=== PATIENT | female | born 1970 | race Caucasian/White ===

== ENCOUNTER → 2021-08-31 | Outpatient (CLI) | payer MEDICAID ==
[~2021-08-31] MED LIST: CEFTIN 250250 MG/TAB PO; CEPHALEXIN; MOTRIN 800800 MG/TAB PO; OXYCODONE; STOOL SOFTENER100 MG PO
== END ==
LOC: COL.RAD 12:08
DX: G56.03 Carpal tunnel syndrome, bilateral upper limbs (principal); G52.2 Disorders of vagus nerve; M50.222 Other cervical disc displacement at C5-C6 level; M47.812 Spondylosis without myelopathy or radiculopathy, cervical region

== ENCOUNTER → 2022-01-13 | Outpatient (CLI) | payer MEDICAID | LOC: MHCPAIN 08:03 | DX: M47.812 Spondylosis without myelopathy or radiculopathy, cervical region (principal); M54.12 Radiculopathy, cervical region; M54.2 Cervicalgia; G89.29 Other chronic pain | CPT/HCPCS: G0463 ==

== ENCOUNTER → 2022-03-04 | Outpatient (CLI) | payer MEDICAID | LOC: MHCPAIN 01-28 13:59 | DX: M47.812 Spondylosis without myelopathy or radiculopathy, cervical region (principal); M54.12 Radiculopathy, cervical region | CPT/HCPCS: J1100; Q9967 ==

== ENCOUNTER → 2022-04-13 | Outpatient (CLI) | payer MEDICAID | LOC: MHCPAIN 08:37 | DX: M47.892 Other spondylosis, cervical region (principal); M54.12 Radiculopathy, cervical region | CPT/HCPCS: G0463 ==

== ENCOUNTER → 2022-12-06 | Outpatient (CLI) | payer MEDICARE, MEDICAID | LOC: DIA.ED 08:08 | DX: E11.40 Type 2 diabetes mellitus with diabetic neuropathy, unspecified (principal); Z79.84 Long term (current) use of oral hypoglycemic drugs; I10 Essential (primary) hypertension ==

== ENCOUNTER → 2023-06-29 | Outpatient (CLI) | payer MEDICARE, MEDICAID | LOC: DIA.ED 08:05 | DX: E11.40 Type 2 diabetes mellitus with diabetic neuropathy, unspecified (principal); Z79.84 Long term (current) use of oral hypoglycemic drugs; I10 Essential (primary) hypertension | CPT/HCPCS: G0108 ==

== ENCOUNTER 2024-04-17 08:41 | Day surgery (SDC) | payer MEDICARE, MEDICAID ==
[~2024-04-17] VITALS: Ht 152.4 cm; Wt 104.9 kg
[2024-04-17] VITALS (13 sets, daily range): BP systolic 109–133; BP diastolic 74–92; PULSE 80–100; TEMP 98.7
[2024-04-17] MEDS ORDERED: 1/2 NS 1,000 ML IV SCH (09:00)
[2024-04-17 09:39] LABS: INR 1.1 (0.8-3.0); PROTHROMBIN TIME 12.4 SECONDS (9.7-12.8)
[2024-04-17 09:41] LABS: HEMATOCRIT 43.7 % (37.0-47.0); MEAN CELL VOLUME 89 fl (80.0-100.0); MEAN CORPUSCULAR HEMOGLOBIN 29 pg (27-31); MEAN CORPUSCULAR HGB CONC 32 g/dl (33.0-37.0); MEAN PLATELET VOLUME 9.9 fl (7.4-10.4); PARTIAL THROMBOPLASTIN TIME 35.8 SECONDS (26.0-37.0); PLATELET COUNT 250 K/mm3 (130-400); RED BLOOD COUNT 4.91 M/mm3 (4.10-5.30); REDCELL DISTRIBUTION WIDTH-CV 12.7 % (11.5-14.5)
[2024-04-17 09:44] LABS: CALCIUM 9.6 mg/dL (8.4-10.2); CREATININE, serum 0.69 mg/dL (0.57-1.11); POTASSIUM 4.2 mEq/L (3.5-4.5)
[2024-04-17] MEDS ORDERED: PRIL40 PO (09:55)
[2024-04-17] MEDS ORDERED: SINGULAIR 110 MG/TAB PO (09:57)
[2024-04-17] MEDS ORDERED: MULTIVITAMIN200 MCG PO (09:58)
[2024-04-17] MEDS ORDERED: ASPIRIN 81M81 MG/TA2 PO (09:58)
[2024-04-17] MEDS ORDERED: PRAVACHOL 20MG20 MG PO (10:00)
[2024-04-17] MEDS ORDERED: FARXIGA10 PO (10:00)
[2024-04-17] MEDS ORDERED: LASIX 20MG TABL20 MG PO (10:00)
[2024-04-17] MEDS ORDERED: FLONASEALLERGY NS (10:01)
[2024-04-17] MEDS ORDERED: BONINE25 MG PO (10:01)
[2024-04-17] MEDS ORDERED: AYR SALINE MIST50 ML NS (10:03)
[2024-04-17] MEDS ORDERED: MUCINEX 60600 MG/TA1 PO (10:04)
[2024-04-17] MEDS ORDERED: SYSTANE GEL EYE10 ML OP (10:05)
[2024-04-17] MEDS ORDERED: VITAMIND3 5000 PO (10:06)
[2024-04-17] MEDS ORDERED: XALATAN EYE DROPS OD (10:06)
[2024-04-17] MEDS ORDERED: ALLEGRA 180MG180 MG PO (10:11)
[2024-04-17] MEDS ORDERED: K-DUR 10 MEQ T10 MEQ PO (10:12)
[2024-04-17] MEDS ORDERED: PEPCID 20MG TAB20 MG PO (10:12)
[2024-04-17] MEDS ORDERED: BENICAR 20MG TA20 MG PO (10:14)
[2024-04-17] MEDS ORDERED: PROAIR HFA0.09 MG/AC IH (10:14)
[2024-04-17] MEDS ORDERED: ZOLOFT 50MG50 MG PO (10:14)
[2024-04-17] MEDS ORDERED: CALCIUM 600MG+D1 TAB PO (10:15)
[2024-04-17] MEDS ORDERED: 00186-0370-20 IH (10:16)
[2024-04-17] MEDS ORDERED: AIMOVIG AU70 MG/1 ML SQ (10:16)
[2024-04-17] MEDS ORDERED: OZEMPIC0.25 MG/02 SQ (10:17)
[2024-04-17] MEDS ORDERED: IMITREX50 MG PO (10:17)
[2024-04-17] MEDS ORDERED: ADVIL200 MG PO (10:18)
[2024-04-17] MEDS ORDERED: GLUCOPHAGE XR750 MG PO (10:19)
[2024-04-17] MEDS ORDERED: LAC-HYDRIN121 TP (10:19)
[2024-04-17] MEDS ORDERED: METAMUCIL FIBER (10:21)
[2024-04-17] MEDS ORDERED: PERIACTIN 4MG TA4 MG PO (10:21)
[2024-04-17] MEDS ORDERED: NEURONTIN100 MG/CAP PO (10:22)
[2024-04-17] MEDS ORDERED: ZANAFLEX CAPSULE4 MG PO (10:23)
[2024-04-17] MEDS ORDERED: VOLTAREN GEL 1%1 TU TP (10:24)
[2024-04-17] MEDS ORDERED: Verapamil 2.5 MG/ML 2 ML VIAL IA SCH (11:15)
[2024-04-17] MEDS ORDERED: Nitroglycerin 100 MCG/ML (Cath Lab) 10 ML VIAL IA SCH (11:15)
[2024-04-17] MEDS ORDERED: Heparin 1,000 UNITS/ML 10 ML Multi-Dose VIAL IV SCH (11:16)
--- NOTE | 2024-04-17 11:40 | NUR ---
See Merge report for procedural sedation/notes
[2024-04-17] MEDS ORDERED: fentaNYL 50 MCG/ML 2 ML VIAL IV SCH (11:53)
[2024-04-17] MEDS ORDERED: Midazolam 2 MG/2 ML VIAL IV SCH (11:53)
[2024-04-17] MEDS ORDERED: Iohexol 350 - 100 ML VIAL INCOR ONE (11:54)
--- NOTE | 2024-04-17 12:14 | NUR ---
Pt back to [facility] - bedside handoff performed with ADEOLA Caballero: vitals initiated and stable, rt radial access site stable, call light in reach.
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
--- NOTE | 2024-04-17 17:27 | NUR ---
Pt ambulated to [facility] with a steady gait. Pt was scheduled for a C. EKG done. IV started, labs drawn. Meds and HX reviewed with the pt. Consent for the procedure signed. Post procedure the pt was brought back to [facility]. Right radial site was assessed, clean, dry, and intact. Pt was groggy when arriving. Discussed with the pt that when they woke up more we can get them something to eat and drink, pt verbalized their understanding. A meal and something to drink was later offered. Pt accepted a water and a meal was orderd. Pt was bedrest for 2 hrs. At the end of the 2 hr bedrest the pt got up and used the restroom. Once they got back to bed air was released from the radial band, 2 mls about every 15 minutes. Once all the air was released the right radial site was cleaned and a band-aid was applied. The right radial site remained clean and dry throughout the air release process. The deflated radial band was reapplied as a reminder to limit the extremity use. The pt requested the arm board be put back on as another reminder, arm board applied. Discharge education and information reviewed with the pt. No questions at this time. IV dc'd and the IV site was wrapped with coban. Pt exited the unit by wheelchair to their adult protective caseworker car.
== END 2024-04-17 16:28 | disposition home or self-care (01) ==
LOC: COL.CAR 08:41
PROVIDERS: Internal Medicine Cardiovascular Disease
DX: R07.9 Chest pain, unspecified (principal); R94.39 Abnormal result of other cardiovascular function study
CPT/HCPCS: C1769; J1644; J2250; J3010; Q9967